=== PATIENT | female | born 1990 | race African-American/Black ===

== ENCOUNTER 2017-10-28 04:55 | Emergency (ER) | payer OTHER, MEDICAID ==
[~2017-10-28] VITALS: Ht 170.2 cm; Wt 61.2 kg
[2017-10-28 04:56] VITALS: BP 145/100
== END 2017-10-28 07:47 | disposition left against medical advice (07) ==
LOC: ER 04:57
DX: Z04.6 Encounter for general psychiatric examination, requested by authority (principal); R45.851 Suicidal ideations
CPT/HCPCS: 99283; A4606; Z7610